=== PATIENT | male | born 1995 | race Caucasian/White ===

== ENCOUNTER 2019-02-11 23:23 | Emergency (ER) | payer OTHER ==
[~2019-02-11] VITALS: Ht 190.5 cm; Wt 97.7 kg
[2019-02-12 00:27] LABS: EOS # 0.1 (0.04-0.40); HEMATOCRIT 42.7 % (42.0-52.0); HEMOGLOBIN 15.3 g/dL (13.5-18.0); LYMPH# 2.8 (1.50-4.00); MEAN CELL VOLUME 85 fl (78-100); MEAN CORPUSCULAR HEMOGLOBIN 31 pg (27-31); MEAN CORPUSCULAR HGB CONC 36 g/dL (33-37); MEAN PLATELET VOLUME 12.4 fl (7.4-10.4); MONO # 0.5 (0.20-0.80); PLATELET COUNT 144 K/mm3 (130-400); RED CELL DISTRIBUTION WIDTH 12.2 % (11.5-14.5); WHITE BLOOD COUNT 6.4 K/mm3 (4.8-10.8)
[2019-02-12 00:39] LABS: ALBUMIN 4.2 g/dL (3.5-5.0); CALCIUM 9.4 mg/dL (8.3-10.5); POTASSIUM 3.5 mmol/L (3.5-5.1); TOTAL BILIRUBIN 0.4 mg/dL (0.2-1.2); TOTAL PROTEIN 6.7 g/dL (6.4-8.3)
[2019-02-12 00:59] VITALS: BP 132/82
== END 2019-02-12 00:59 | disposition home or self-care (01) ==
LOC: ED 23:23
PROVIDERS: Family Medicine
DX: R07.89 Other chest pain (principal); F17.210 Nicotine dependence, cigarettes, uncomplicated; Z85.850 Personal history of malignant neoplasm of thyroid

== ENCOUNTER → 2020-06-19 | Outpatient (CLI) | payer OTHER | LOC: RAD 13:45 | DX: N50.811 Right testicular pain (principal); R19.09 Other intra-abdominal and pelvic swelling, mass and lump ==

== ENCOUNTER → 2021-03-30 | Outpatient (CLI) | payer OTHER | LOC: RAD 16:50 | DX: Z87.81 Personal history of (healed) traumatic fracture (principal); M79.672 Pain in left foot; M79.671 Pain in right foot ==

== ENCOUNTER 2021-05-01 22:35 | Emergency (ER) | payer OTHER ==
[2021-05-01 22:52] LABS: BASO # 0.03 (0.02-0.10); EOS # 0.04 (0.04-0.40); EOS % 0.6 % (0.0-4.0); HEMATOCRIT 46.2 % (42.0-52.0); HEMOGLOBIN 16.3 g/dL (13.5-18.0); LYMPH# 1.82 (1.50-4.00); MEAN CELL VOLUME 90 fl (78-100); MEAN CORPUSCULAR HEMOGLOBIN 32 pg (27-31); MEAN CORPUSCULAR HGB CONC 35 g/dL (33-37); MEAN PLATELET VOLUME 11.6 fl (7.4-10.4); MONO # 0.44 (0.20-0.80); NEU # 4.37 (1.40-6.50); PLATELET COUNT 158 K/mm3 (130-400); RED BLOOD COUNT 5.13 M/mm3 (4.20-5.60); RED CELL DISTRIBUTION WIDTH 12.2 % (11.5-14.5); WHITE BLOOD COUNT 6.7 K/mm3 (4.8-10.8)
[2021-05-01 23:03] LABS: SODIUM 143 mmol/L (136-145)
[2021-05-01 23:04] LABS: ALBUMIN 4.4 g/dL (3.5-5.0); CALCIUM 9.6 mg/dL (8.3-10.5)
[2021-05-01 23:06] LABS: CARBON DIOXIDE 18 mmol/L (22-29); GLUCOSE 89 mg/dL (75-110); TOTAL PROTEIN 6.8 g/dL (6.4-8.3)
[2021-05-01 23:07] LABS: TOTAL BILIRUBIN 1.1 mg/dL (0.2-1.2)
[2021-05-01 23:08] LABS: ALCOHOL IN-HOUSE 61 mg/dL (<10)
[2021-05-01 23:10] LABS: AST-SGOT 17 U/L (5-34)
[2021-05-01 23:13] LABS: ALT/SGPT 18 U/L (0-55)
[2021-05-01 23:14] LABS: POTASSIUM 2.9 mmol/L (3.5-5.1)
[2021-05-01 23:15] LABS: ACETAMINOPHEN < 1 ug/mL
[2021-05-02 01:38] VITALS: BP 151/87
== END 2021-05-02 01:42 | disposition home or self-care (01) ==
LOC: ED 22:35
PROVIDERS: Physician Assistant
DX: F32.9 Major depressive disorder, single episode, unspecified (principal); E87.6 Hypokalemia; F17.210 Nicotine dependence, cigarettes, uncomplicated

== ENCOUNTER → 2021-05-28 | Outpatient (CLI) | payer OTHER ==
[2021-05-28 19:10] LABS: CALCIUM 9.3 mg/dL (8.3-10.5)
== END ==
LOC: LAB 18:53
PROVIDERS: Nurse Practitioner Family
DX: R19.7 Diarrhea, unspecified (principal); Z20.822 Contact with and (suspected) exposure to COVID-19